=== PATIENT | female | born 1995 | race Caucasian/White ===

== ENCOUNTER 2018-01-30 02:20 | Inpatient (IN) | payer BC ==
[2018-01-30] MEDS ORDERED: LACTATED RINGER'S 1,000 ML IV (02:53)
[2018-01-30] MEDS ORDERED: CARBOPROST 250 MCG INJ IM ×2 (03:00→09:30)
[2018-01-30] MEDS ORDERED: BUTORPHANOL 2 MG INJ IV (03:00)
[2018-01-30] MEDS ORDERED: LIDOCAINE 1% (MPF) 30 ML INJ INJ (03:00)
[2018-01-30] MEDS ORDERED: IBUPROFEN 600 MG TAB PO (03:00)
[2018-01-30] MEDS ORDERED: OXYTOCIN 30 UNITS/LR 500 ML IV ×5 (03:00→20:11)
[2018-01-30] MEDS ORDERED: METHYLERGONOVINE 0.2 MG INJ IM ×2 (03:00→09:30)
[2018-01-30] MEDS ORDERED: MISOPROSTOL 200 MCG TAB PR ×2 (03:00→09:30)
[2018-01-30] MEDS: LACTATED RINGER'S 1,000 ML IV* ×2 (04:00→04:38)
[2018-01-30 04:28] LABS: ADD MAN DIFF? NO
[2018-01-30] MEDS: AMPICILLIN 2 GM/NS (PMX) 100 ML IV (04:38)
[2018-01-30 04:52] LABS: INR 0.83; PROTIME 11.5 Sec (11.9-14.9); PT RATIO 0.9
[2018-01-30 04:53] LABS: PARTIAL THROMBOPLASTIN TIME 26.2 Sec (25.0-35.0)
[2018-01-30 05:20] LABS: WHITE BLOOD COUNT 10.9 10^3/ul (4.8-10.8)
[2018-01-30 05:20] LABS: BASOPHILS % 0.3 % (0.0-2.0); EOSINOPHILS # 0.1 10^3/ul (0.0-0.5); EOSINOPHILS % 0.5 % (0.0-7.0); HEMATOCRIT 35.1 % (37.0-47.0); HEMOGLOBIN 11.6 g/dl (12.0-16.0); LYMPHOCYTES # 2.2 10^3/ul (0.8-2.9); LYMPHOCYTES % 20.1 % (15.0-51.0); MEAN CORPUSCULAR HEMOGLOBIN 30.4 pg (29.0-33.0); MEAN CORPUSCULAR VOLUME 91.9 fl (82.0-101.0); MEAN PLATELET VOLUME 11.5 fl (7.4-10.4); MONOCYTE # 0.9 10^3/ul (0.3-0.9); MONOCYTES % 8.4 % (0.0-11.0); NEUTROPHIL # 7.7 10^3/ul (1.6-7.5); NEUTROPHILS % 70.4 % (39.0-77.0); PLATELET COUNT 196 10^3/UL (140-415); RED BLOOD COUNT 3.82 10^6/ul (4.20-5.40); RED CELL DISTRIBUTION WIDTH 12.7 % (11.5-14.5)
[2018-01-30] MEDS ORDERED: FENTAnyl 2MCG/ML-ROPIV 0.2% 100 ML (06:01)
[2018-01-30] MEDS ORDERED: NALOXONE (0.4 MG/ML) INJ IV ×2 (07:00→09:30)
[2018-01-30] MEDS ORDERED: FENTAnyl 2MCG/ML-ROPIV 0.2% 100 ML BAG EPI (07:00)
[2018-01-30] MEDS ORDERED: AMPICILLIN 1 GM/NS (PMX) 50 ML IV (07:00)
[2018-01-30 07:20] LABS: HEPATITIS B SURFACE ANTIGEN NEGATIVE (NEGATIVE)
[2018-01-30] MEDS ORDERED: TERBUTALINE 1 ML (08:11)
[2018-01-30] MEDS: TERBUTALINE 1 MG/ML INJ SC (08:14)
[2018-01-30] MEDS ORDERED: CEFAZOLIN 2 GM/50 ML (PMX) 50 ML IVPB (08:15)
[2018-01-30 08:24] LABS: HIV 1&2 ANTIBODY NEGATIVE (NEGATIVE)
[2018-01-30] MEDS: CEFAZOLIN 2 GM/50 ML (PMX) 50 ML IVPB (08:27)
[2018-01-30] MEDS: LACTATED RINGER'S 1,000 ML IV ×3 (09:24→22:21)
[2018-01-30] MEDS ORDERED: HYDROmorphONE 0.5 MG/0.5 ML SYG IV ×2 (09:30)
[2018-01-30] MEDS ORDERED: KETOROLAC 30 MG INJ IV (09:30)
[2018-01-30] MEDS ORDERED: ZOLPIDEM 5 MG TAB PO (09:30)
[2018-01-30] MEDS ORDERED: FENTAnyl 50 MCG/ML VIAL IV ×2 (09:30)
[2018-01-30] MEDS ORDERED: DIPHENHYDRAMINE 50 MG INJ IV ×2 (09:30)
[2018-01-30] MEDS ORDERED: ONDANSETRON 4 MG INJ IV ×2 (09:30)
[2018-01-30] MEDS ORDERED: HYDROmorphONE 1 MG/5 ML IV SYRINGE IV ×3 (09:30)
[2018-01-30] MEDS: OXYTOCIN 30 UNITS/LR 500 ML IV ×2 (10:07→12:07)
[2018-01-30] MEDS: KETOROLAC 30 MG INJ IV ×2 (11:42→17:39)
[2018-01-30 15:56] LABS: AMPHETAMINE/METHAMPHETAMINE Negative (NEGATIVE); BARBITURATES Negative (NEGATIVE); BENZODIAZEPINES Negative (NEGATIVE); CANNABINOIDS Negative (NEGATIVE); COCAINE Negative (NEGATIVE)
[2018-01-30 16:07] LABS: OPIATES Positive (NEGATIVE)
[2018-01-30] MEDS ORDERED: EPINEPHrine 1 MG INJ (20:11)
[2018-01-30] MEDS ORDERED: OXYTOCIN 10 UNIT INJ (20:11)
[2018-01-30] MEDS ORDERED: morphine SULFATE/PF (10 MG/10 ML) INJ (20:11)
[2018-01-30] MEDS ORDERED: LIDOCAINE 1.5%/EPI MPF (SDV) 30 ML VIAL (20:11)
[2018-01-31] MEDS: KETOROLAC 30 MG INJ IV ×2 (07:54)
[2018-01-31] MEDS: LACTATED RINGER'S 1,000 ML IV ×2 (09:47→17:24)
[2018-01-31 11:00] LABS: ADD MAN DIFF? NO
[2018-01-31 11:01] LABS: WHITE BLOOD COUNT 11.1 10^3/ul (4.8-10.8)
[2018-01-31 11:01] LABS: BASOPHILS % 0.3 % (0.0-2.0); EOSINOPHILS % 0.3 % (0.0-7.0); HEMATOCRIT 29.4 % (37.0-47.0); HEMOGLOBIN 9.7 g/dl (12.0-16.0); LYMPHOCYTES # 1.3 10^3/ul (0.8-2.9); LYMPHOCYTES % 11.2 % (15.0-51.0); MEAN CORPUSCULAR HEMOGLOBIN 31.1 pg (29.0-33.0); MEAN CORPUSCULAR VOLUME 94.2 fl (82.0-101.0); MONOCYTE # 0.5 10^3/ul (0.3-0.9); MONOCYTES % 4.8 % (0.0-11.0); NEUTROPHIL # 9.3 10^3/ul (1.6-7.5); PLATELET COUNT 150 10^3/UL (140-415); RED BLOOD COUNT 3.12 10^6/ul (4.20-5.40); RED CELL DISTRIBUTION WIDTH 13.1 % (11.5-14.5)
[2018-01-31] MEDS: HYDROCODONE/APAP (5/325) TAB PO ×3 (12:28→21:21)
[2018-01-31] MEDS: LANOLIN 7 GM TUBE TOP (12:31)
[2018-01-31] MEDS: IBUPROFEN 800 MG TAB PO ×2 (14:21→22:16)
[2018-01-31 17:51] LABS: RAPID PLASMA REAGIN NONREACTIVE (NR)
[2018-02-01] MEDS: LACTATED RINGER'S 1,000 ML IV (01:24)
[2018-02-01] MEDS: IBUPROFEN 800 MG TAB PO ×3 (06:00→21:25)
[2018-02-01 10:41] LABS: RUBELLA ANTIBODY - IGG 1.75 index
[2018-02-01 13:02] LABS: RUBELLA ANTIBODY - IGM <20.00 AU/mL
[2018-02-01] MEDS: HYDROCODONE/APAP (5/325) TAB PO (20:05)
[2018-02-02] MEDS: IBUPROFEN 800 MG TAB PO ×2 (05:32→14:38)
[2018-02-02] MEDS: DIPHTH/TET/ACEL PERTUSS (ADULT) 0.5 ML VIAL IM* (15:06)
== END 2018-02-02 19:50 | disposition home or self-care (01) | DRG 766 ==
LOC: OBT 02:20 → L-D 02:21 → OBT 02:52 → L-D 02:53 → PP1 12:24
PROVIDERS: Obstetrics & Gynecology
PROC: 10D00Z1 Extraction of Products of Conception, Low, Open Approach (ICD-10-PCS; principal; 2018-01-30)
DX: O32.1XX0 Maternal care for breech presentation, not applicable or unspecified (principal); Z3A.40 40 weeks gestation of pregnancy; Z37.0 Single live birth
CPT/HCPCS: 62319; 80307; 85025; 85610; 85730; 86592; 86703; 86762; 86850; 86900; 86901; 87340; 90715; 99464